=== PATIENT | female | born 1985 | race American Indian/Alaskan Native ===

== ENCOUNTER 2018-11-22 08:38 | Emergency (ER) | payer OTHER ==
[2018-11-22 08:45] VITALS: BP 124/83; PULSE 107; TEMP 98.2; BMI 36.5
--- NOTE | 2018-11-22 09:14 | PDOC ---
History of Present Illness - General Chief Complaint: Vaginal Bleeding Stated Complaint: CRAMPING/SPOTTING Time Seen by Provider: 11/22/18 09:12 History Source: Patient Exam Limitations: No Limitations - History of Present Illness Initial Comments: 11/22/18 09:13 CHIEF COMPLAINT: Vaginal bleeding HISTORY OF PRESENT ILLNESS: This is an otherwise healthy 33-year-old A1, 14 weeks , who presents for evaluation of one episode of vaginal spotting noted while wiping this morning, as well as vaginal "pressure" and dysuria. She also notes a rash to her left tricep since yesterday and pain in the left axilla. She denies back pain, abdominal pain, fevers/chills, or any other symptoms. Ob is Dr. Yost in [facility]. REVIEW OF SYSTEMS: GENERAL/CONSTITUTIONAL: No fever or chills. No weakness. No weight change. CARDIOVASCULAR: No chest pain or palpitations. RESPIRATORY: No cough, wheezing, or shortness of breath. GASTROINTESTINAL: No nausea, vomiting, diarrhea or constipation. GENITOURINARY: No dysuria, frequency, or change in urination. MUSCULOSKELETAL: Left axillary pain. SKIN: Rash to left bicep, not itchy or painful. NEUROLOGIC: No headache, vertigo, loss of consciousness, or loss of sensation. PSYCHIATRIC: No depression or anxiety. ENDOCRINE: No increased thirst. No abnormal weight change. HEMATOLOGIC/LYMPHATIC: No anemia, easy bleeding, or history of blood clots. ALLERGIC/IMMUNOLOGIC: No hives or skin allergy. No latex allergy. PHYSICAL EXAM: GENERAL: The patient is awake, alert, and fully oriented, in no acute distress. HEAD: Normal with no signs of trauma. ENT: Pupils equal, round and reactive to light, extraocular movements intact, sclera anicteric, conjunctiva clear. Neck supple. LUNGS: Clear to auscultation bilaterally. Normal excursion. No respiratory distress or use of accessory muscles. CV: RRR, S1/S2, no MRG. Cap refill < 2 sec. ABDOMEN: Soft, gravid uterus palpable below umbilicus, non-tender. EXTREMITIES: Normal range of motion, no edema. NEUROLOGICAL: Normal speech, normal gait. CN II-XII grossly intact. PSYCH: Normal mood, normal affect. SKIN: 6 x 4cm vesicular rash left tricep, no active drainage. No axillary rash. COAL CONVEYOR OPERATOR: Normal external exam. No discharge or bleeding. 11/22/18 10:02 Past History - Past Medical History Allergies/Adverse Reactions: Allergies Allergy/AdvReac Type Severity Reaction Status Date / Time No Known Allergies Allergy Verified 11/22/18 08:41 Asthma: Yes COPD: No - Immunization History Immunization Up to Date: Yes - Suicide/Smoking/Psychosocial Hx Smoking History: Never smoked Information on smoking cessation initiated: No Hx Alcohol Use: No Drug/Substance Use Hx: No *Physical Exam - Vital Signs Last Vital Signs Temp Pulse Resp BP Pulse Ox 98.2 F 107 H 17 124/83 99 11/22/18 08:41 11/22/18 08:41 11/22/18 08:41 11/22/18 08:41 11/22/18 08:41 ED Treatment Course - LABORATORY CBC & Chemistry Diagram: 11/22/18 10:31 11/22/18 09:32 - RADIOLOGY Radiology Studies Ordered: Category Date Time Status <14WKS US [US] Stat Ultrasound 11/22/18 09:13 Ordered Medical Decision Making - Medical Decision Making 11/22/18 10:05 A/P: 33-year-old female, 14 wks preg, with one episode of vaginal spotting and some dysuria, also with arm rash. 1. Labs including CBC, bhcg, T&S 2. UA/culture 3. Suspect shingles - will send VZV swab per pt request and treat with Valtrex Ultrasound reviewed: single live IUP with FHR 144bpm. UA neg. Wbc mildly elevated consistent with state. Rx Valtrex. Advised close OB followup. Return precautions reviewed. *DC/Admit/Observation/Transfer Diagnosis at time of Disposition: Vaginal bleeding before 22 weeks gestation - Discharge Dispostion Disposition: HOME Condition at time of disposition: Stable Decision to Admit order: No - Referrals - Patient Instructions Printed Discharge Instructions: DI for Shingles, DI for Vaginal Bleeding During Additional Instructions: -Pelvic rest: no sex or baths until you have seen your OB -Take Valtrex as prescribed for possible shingles -Follow up with Dr. Stuart as soon as possible -Return here for worsening pain or any other concerning symptoms - Post Discharge Activity
[2018-11-22 10:56] LABS: BASO % 0.3 % (0-2.0); EOS % 0.7 % (0-4.5); HEMOGLOBIN 11.6 GM/dL (10.7-15.3); LYMPH % 19.4 % (8-40); MCH 24.2 pg (25.7-33.7); MCHC 32.1 g/dl (32.0-36.0); MEAN CELL VOLUME 75.4 fl (80-96); MEAN PLT VOLUME 8.6 fl (7.5-11.1); MONO % 5.5 % (3.8-10.2); NEUT % 74.1 % (42.8-82.8); PLATELET COUNT 333 K/MM3 (134-434); RBC 4.78 M/mm3 (3.60-5.2); WHITE BLOOD COUNT 12.9 K/mm3 (4.0-10.0)
[2018-11-22 11:20] LABS: BLOOD UREA NITROGEN 5.4 mg/dL (7-18); CALCIUM 8.6 mg/dL (8.5-10.1); CREATININE 0.5 mg/dL (0.55-1.3)
[2018-11-22 11:27] LABS: PH,URINE 5.5 (5.0-8.0); URINE APPEARANCE CLEAR; URINE BILIRUBIN NEGATIVE (NEGATIVE); URINE COLOR YELLOW; URINE GLUCOSE (UA) NEGATIVE (NEGATIVE); URINE KETONE TRACE (NEGATIVE); URINE LEUK ESTERASE NEGATIVE (NEGATIVE); URINE NITRITE NEGATIVE (NEGATIVE); URINE PROTEIN NEGATIVE (NEGATIVE); URINE UROBILINOGEN 0.2 mg/dL (0.2-1.0)
== END 2018-11-22 12:08 | disposition home or self-care (01) ==
LOC: JER 08:38
DX: O26.852 Spotting complicating pregnancy, second trimester (principal); O20.8 Other hemorrhage in early pregnancy; Z3A.14 14 weeks gestation of pregnancy; R21 Rash and other nonspecific skin eruption; Z87.09 Personal history of other diseases of the respiratory system
CPT/HCPCS: 36415; 76801-TC; 80048; 81003; 84702; 85025; 86850; 86900; 86901; 87086; 87798; 99281-25

== ENCOUNTER 2018-12-16 03:56 | Emergency (ER) | payer OTHER ==
[2018-12-16 04:15] VITALS: BMI 36.1
--- NOTE | 2018-12-16 04:45 | PDOC ---
History of Present Illness - General Chief Complaint: Nausea/Vomiting Stated Complaint: FLU-LIKE SYMPTOMS 18 WEEKS Time Seen by Provider: 12/16/18 04:24 History Source: Patient Exam Limitations: No Limitations - History of Present Illness Initial Comments: 12/16/18 04:36 33 yo female 18 weeks , with 2 miscarriages pmh asthma presents to the ED for flu like symptoms for 2 days. Pt states she has had headaches, body aches, productive cough, chest tightness reminding her of past asthma exacerbations, fevers and NB/NB vomiting (4 episodes). Pt states a co worker had similar symptoms a few days before she did. Last Tylenol 11 pm, took 500mg. Denies abdominal pain, vaginal discharge, back pain, CP, changes in bowel or bladder habits Past History - Past Medical History Allergies/Adverse Reactions: Allergies Allergy/AdvReac Type Severity Reaction Status Date / Time No Known Allergies Allergy Verified 11/22/18 08:41 Home Medications: Ambulatory Orders Valacyclovir HCl [Valtrex] 1,000 mg PO Q8H 7 Days #21 tablet 11/22/18 Asthma: Yes COPD: No - Immunization History Immunization Up to Date: Yes - Psycho Social/Smoking Cessation Hx Smoking History: Never smoked Hx Alcohol Use: No Drug/Substance Use Hx: No Review of Systems - Review of Systems Constitutional: Yes: Fever. No: Chills Respiratory: Yes: Productive cough. No: Shortness of Breath Cardiac (ROS): No: Chest Pain, Edema ABD/GI: Yes: Nausea, Vomiting : No: Burning, Dysuria, Frequency, Flank Pain Integumentary: No: Change in Color Neurological: Yes: Headache. No: Numbness, Paresthesia, Unsteady Gait *Physical Exam - Vital Signs Last Vital Signs Temp Pulse Resp BP Pulse Ox 98.5 F 118 H 20 115/74 98 12/16/18 04:13 12/16/18 04:13 12/16/18 04:13 12/16/18 04:13 12/16/18 04:13 - Physical Exam General Appearance: Yes: Nourished, Appropriately Dressed. No: Apparent Distress HEENT: positive: EOMI Neck: positive: Supple. negative: Carotid bruit Respiratory/Chest: positive: Lungs Clear, Normal Breath Sounds. negative: Respiratory Distress, Accessory Muscle Use, Crackles, Rales, Rhonchi, Stridor, Wheezing Cardiovascular: positive: Regular Rhythm, S1, S2, Tachycardia. negative: Edema , JVD, Murmur Vascular Pulses: Dorsalis-Pedis (R): 4+, Doralis-Pedis (L): 4+ Gastrointestinal/Abdominal: positive: Flat, Soft. negative: Protuberent, Distended, Guarding, Rebound, Tenderness Musculoskeletal: negative: CVA Tenderness Extremity: positive: Normal Capillary Refill, Normal Inspection Integumentary: positive: Normal Color, Dry, Warm Neurologic: positive: Fully Oriented, Alert, Normal Mood/Affect Medical Decision Making - Medical Decision Making 12/16/18 05:52 33 yo female 18 weeks , with 2 miscarriages pmh asthma presents to the ED for flu like symptoms for 2 days. Pt states she has had headaches, body aches, productive cough, chest tightness reminding her of past asthma exacerbations, fevers and NB/NB vomiting (4 episodes). Pt states a co worker had similar symptoms a few days before she did. Last Tylenol 11 pm, took 500mg. Denies abdominal pain, vaginal discharge, back pain, CP, changes in bowel or bladder habits Vitals show elevated HR, will reassess bedside US shows live single IUP, FHR 158 likely URI with super imposed asthma exacerbation treating with Tylenol, fluids and 1 duoneb treatment 12/16/18 06:03 Pt reports sig improvement after breathing treatment Influenza and strep neg pending UA to r/o UTI in preg pt eating and drinking, no episodes of vomiting pt will be s/o for further care and likely be DC home for URI Discharge - Discharge Information Problems reviewed: Yes Clinical Impression/Diagnosis: URI (upper respiratory infection) Condition: Stable Disposition: HOME - Follow up/Referral Referrals: Zi Hills MD [Primary Care Provider] - - Patient Discharge Instructions Patient Printed Discharge Instructions: DI for Vomiting -- Adult, DI for Nausea -- Adult, DI for Viral Upper Respiratory Infection -- Adult Additional Instructions: Please see your primary doctor within the next 48 hours. See your SPRINKLER HELPER Doctor within the next 48 hours. Take Tylenol every 4-6 hours for fevers and pain. Return to the ER for new or concerning symptoms. Thank you - Post Discharge Activity
[2018-12-16] MEDS ORDERED: ACETAMINOPHEN 1000 MG/100 ML VIAL (NON FORMULARY) IVPB ONE (05:11)
[2018-12-16] MEDS ORDERED: SODIUM CHLORIDE 1,000 ML IV STA (05:11)
[2018-12-16] MEDS ORDERED: ALBUTEROL SO4 2.5/IPRATROPIUM 0.5 INH SOL 3 ML VIAL.NEB. NEB ONE ×2 (05:16→05:25)
[2018-12-16] MEDS ORDERED: ACETAMINOPHEN INJECTION 100 ML IVPB ONE (05:41)
--- NOTE | 2018-12-16 06:01 | PDOC ---
Attending Attestation - Resident Resident Name: Jarrod Ivy - ED Attending Attestation I have performed the following: I have examined & evaluated the patient, The case was reviewed & discussed with the resident, I agree w/resident's findings & plan, Exceptions are as noted - HPI HPI: 12/16/18 06:01 33 F @ 18 weeks, with h/o asthma, presenting to ED with bodyaches, cough, and malaise. Pt states that she had a sick contact at work with similar symptoms. Pt denies fevers. She states that she felt some chest tightness and wheezing as well, but this resolved after using an albuterol neb. Pt denies CP/ SOB currently. Denies abdominal pain. Denies vaginal discharge/bleeding. Denies dysuria. Denies flank pain. - Physicial Exam PE: 12/16/18 06:05 "GENERAL: Awake, alert, and fully oriented, in no acute distress. HEAD: No signs of trauma EYES: PERRLA, EOMI, sclera anicteric, conjunctiva clear ENT: Auricles normal inspection, hearing grossly normal, nares patent, oropharynx clear without exudates. Moist mucosa NECK: Nontender, no stepoffs, Normal ROM, supple, no lymphadenopathy, JVD, or masses LUNGS: Breath sounds equal, clear to auscultation bilaterally. No wheezes, and no crackles HEART: Regular rate and rhythm, normal S1 and S2, no murmurs, rubs or gallops ABDOMEN: + Gravid, nontender, normoactive bowel sounds. No guarding, no rebound. No masses EXTREMITIES: Normal range of motion, no edema. No clubbing or cyanosis. No cords, erythema, or tenderness NEUROLOGICAL: Cranial nerves II through XII intact. 5/5 strength and sensation in all extremities, Normal speech, normal gait, normal cerebellar function SKIN: Warm, Dry, normal turgor, no rashes or lesions noted. - Medical Decision Making 12/16/18 06:05 33 F @ 18 weeks, presenting with flu like symptoms. - Flu swab, rapid strep - UA, UCx - IVF, tylenol
--- NOTE | 2018-12-16 07:15 | PDOC ---
*Physical Exam - Vital Signs Last Vital Signs Temp Pulse Resp BP Pulse Ox 98.5 F 118 H 20 115/74 98 12/16/18 04:13 12/16/18 04:13 12/16/18 04:13 12/16/18 04:13 12/16/18 04:13 ED Treatment Course - RADIOLOGY Radiograph Interpretation: Pelvis/obstetrical ultrasound, transabdominal LMP 08/15/2018 The uterus is gravid with a single intrauterine fetus seen in transverse lie position. Average sonographic gestational age is 14 weeks 2 days. heart rate is 141 bpm. There is no gross evidence of hydrocephalus. Site of umbilical cord insertion appears unremarkable. Minimal fluid is present in the stomach and urinary bladder. The amount of amniotic fluid appears unremarkable. Anterior placenta with a homogeneous echotexture. Uterine cervix was poorly visualized and not completely evaluated on this exam. IMPRESSION: Single live intrauterine in transverse position with average sonographic gestational age of 14 weeks 2 days. heart rate was documented. An obstetrical ultrasound to check anatomy is needed 12/16/18 07:14 - Medications Given in the ED: ED Medications Discontinued Medications Generic Name Dose Route Start Last Admin Trade Name Jackq PRN Reason Stop Dose Admin Acetaminophen 1,000 mg 12/16/18 05:11 12/16/18 05:54 Ofirmev Injection - IVPB 12/16/18 05:12 1,000 mg ONCE ONE Administration Albuterol/Ipratropium 1 amp 12/16/18 05:16 12/16/18 05:31 Duoneb - NEB 12/16/18 05:17 1 amp ONCE ONE Administration Sodium Chloride 1,000 mls @ 1,000 mls/hr 12/16/18 05:11 12/16/18 05:53 Normal Saline - IV 12/16/18 06:10 1,000 mls/hr ASDIR STA Administration Medical Decision Making - Medical Decision Making Pt received as sign out Influenza swab neg TVUS w/ single IUP Pt pending UA and repeat vitals 12/16/18 07:13 Repeat BP 93/58 -Will give additional 1L NS -Pt asymptomatic at this time UA still pending 12/16/18 07:57 UA w/o evidence of UTI Plan for D/C w/ OBGYN f/u Discharge instructions and return precautions given Pt in agreement and verbalized understanding Dispo: home 12/16/18 08:21 Discharge - Discharge Information Problems reviewed: Yes Clinical Impression/Diagnosis: URI (upper respiratory infection) Qualifiers: URI type: unspecified URI Qualified Code(s): J06.9 - Acute upper respiratory infection, unspecified Condition: Stable Disposition: HOME - Admission No - Follow up/Referral Referrals: Zi Hills MD [Primary Care Provider] - - Patient Discharge Instructions Patient Printed Discharge Instructions: DI for Viral Upper Respiratory Infection -- Adult, DI for Nausea -- Adult, DI for Vomiting -- Adult Additional Instructions: Please see your primary doctor within the next 48 hours. See your CARBON PRINTER Doctor within the next 48 hours. Take Tylenol every 4-6 hours for fevers and pain. Return to the ER for new or concerning symptoms. Thank you - Post Discharge Activity
[2018-12-16 07:19] VITALS: PULSE 100; TEMP 98
[2018-12-16] MEDS ORDERED: SODIUM CHLORIDE 0.9% 500 ML INFUS.BAG IV ONE (07:41)
[2018-12-16 08:18] LABS: URINE APPEARANCE CLEAR; URINE BILIRUBIN NEGATIVE (NEGATIVE); URINE COLOR YELLOW; URINE GLUCOSE (UA) NEGATIVE (NEGATIVE); URINE KETONE NEGATIVE (NEGATIVE); URINE LEUK ESTERASE NEGATIVE (NEGATIVE); URINE NITRITE NEGATIVE (NEGATIVE); URINE PROTEIN TRACE (NEGATIVE); URINE UROBILINOGEN 0.2 mg/dL (0.2-1.0)
[2018-12-16 08:27] VITALS: BP 104/69
--- NOTE | 2018-12-16 08:31 | PDOC ---
*Physical Exam - Vital Signs Last Vital Signs Temp Pulse Resp BP Pulse Ox 98.0 F 100 H 20 104/69 100 12/16/18 07:18 12/16/18 08:27 12/16/18 08:27 12/16/18 08:27 12/16/18 08:27 - Physical Exam Comments: 12/16/18 08:30 His pelvic exam by 430 awake alert no acute distress lungs are clear bilaterally patient is well-appearing no acute distress ED Treatment Course - ADDITIONAL ORDERS Additional order review: Laboratory Results 12/16/18 07:00 Urine Color Yellow Urine Appearance Clear Urine pH 6.0 Ur Specific [place] 1.032 Urine Protein Trace Urine Glucose (UA) Negative Urine Ketones Negative Urine Blood Negative Urine Nitrite Negative Urine Bilirubin Negative Urine Urobilinogen 0.2 Ur Leukocyte Esterase Negative - Medications Given in the ED: ED Medications Discontinued Medications Generic Name Dose Route Start Last Admin Trade Name Jackq PRN Reason Stop Dose Admin Acetaminophen 1,000 mg 12/16/18 05:11 12/16/18 05:54 Ofirmev Injection - IVPB 12/16/18 05:12 1,000 mg ONCE ONE Administration Albuterol/Ipratropium 1 amp 12/16/18 05:16 12/16/18 05:31 Duoneb - NEB 12/16/18 05:17 1 amp ONCE ONE Administration Sodium Chloride 1,000 mls @ 1,000 mls/hr 12/16/18 05:11 12/16/18 05:53 Normal Saline - IV 12/16/18 06:10 1,000 mls/hr ASDIR STA Administration Sodium Chloride 1,000 ml 12/16/18 07:41 12/16/18 07:45 Normal Saline - IV 12/16/18 07:42 1,000 ml ONCE ONE Administration Medical Decision Making - Medical Decision Making 12/16/18 08:30 33-year-old female currently here today with cough nasal congestion nausea vomiting. Patient was seen by the overnight team signed out to me at 7 AM awaiting UA results on my reassessment patient is well-appearing states she feels better was able to tolerate a banana here in the ED had received 1 L of normal saline she will be ordered for 1 more liter as blood pressure was borderline low in the 90s sure over 100 systolic heart rate is 100 UA is negative discharged home patient will follow up with obstetrics Dr. Jansen Discharge - Discharge Information Problems reviewed: Yes Clinical Impression/Diagnosis: URI (upper respiratory infection) Qualifiers: URI type: unspecified URI Qualified Code(s): J06.9 - Acute upper respiratory infection, unspecified Condition: Stable Disposition: HOME - Follow up/Referral Referrals: Zi Hills MD [Primary Care Provider] - - Patient Discharge Instructions Patient Printed Discharge Instructions: DI for Viral Upper Respiratory Infection -- Adult, DI for Nausea -- Adult, DI for Vomiting -- Adult Additional Instructions: Please see your primary doctor within the next 48 hours. See your TRANSMISSION BUILDER Doctor within the next 48 hours. Take Tylenol every 4-6 hours for fevers and pain. Return to the ER for new or concerning symptoms. Thank you - Post Discharge Activity
== END 2018-12-16 08:52 | disposition home or self-care (01) ==
LOC: JER 03:56
PROC: 3E0337Z Introduction of Electrolytic and Water Balance Substance into Peripheral Vein, Percutaneous Approach (ICD-10-PCS; principal; 2018-12-16)
PROC: 3E033NZ Introduction of Analgesics, Hypnotics, Sedatives into Peripheral Vein, Percutaneous Approach (ICD-10-PCS; 2018-12-16)
PROC: 3E0F7GC Introduction of Other Therapeutic Substance into Respiratory Tract, Via Natural or Artificial Opening (ICD-10-PCS; 2018-12-16)
PROC: BY4CZZZ Ultrasonography of Second Trimester, Single Fetus (ICD-10-PCS; 2018-12-16)
DX: O26.892 Other specified pregnancy related conditions, second trimester (principal); J06.9 Acute upper respiratory infection, unspecified; Z3A.18 18 weeks gestation of pregnancy
CPT/HCPCS: 81003; 87070; 87086; 87804; 87880; 99284-25; J0131; J7030

== ENCOUNTER 2019-01-08 16:21 | Emergency (ER) | payer OTHER ==
--- NOTE | 2019-01-08 16:27 | PDOC ---
Rapid Medical Evaluation Time Seen by Provider: 01/08/19 16:24 Medical Evaluation: Allergies Allergy/AdvReac Type Severity Reaction Status Date / Time No Known Allergies Allergy Verified 11/22/18 08:41 01/08/19 16:24 CC: sent by PMD to r/o DVT. 21wks . No traffic analyst complaints. PE: RLE swelling and calf tenderness. No cords Orders: doppler Patient will proceed to ER for continued evaluation. Discharge Disposition - Diagnosis Swelling of calf - Referrals - Patient Instructions - Post Discharge Activity
[2019-01-08 16:28] VITALS: BMI 33.9
--- NOTE | 2019-01-08 17:42 | PDOC ---
History of Present Illness - General Chief Complaint: Pain Stated Complaint: SENT BY DOCTOR 21WK PREG R/O DVT Time Seen by Provider: 01/08/19 16:24 History Source: Patient Exam Limitations: No Limitations Past History - Past Medical History Allergies/Adverse Reactions: Allergies Allergy/AdvReac Type Severity Reaction Status Date / Time No Known Allergies Allergy Verified 01/08/19 16:27 Home Medications: Ambulatory Orders NK [No Known Home Medication] 12/16/18 Asthma: Yes COPD: No - Immunization History Immunization Up to Date: Yes - Psycho Social/Smoking Cessation Hx Smoking History: Never smoked Information on smoking cessation initiated: No Hx Alcohol Use: No Drug/Substance Use Hx: No *Physical Exam - Vital Signs Last Vital Signs Temp Pulse Resp BP Pulse Ox 98.1 F 108 H 19 123/80 98 01/08/19 16:25 01/08/19 16:25 01/08/19 16:25 01/08/19 16:25 01/08/19 16:25 - Physical Exam General Appearance: No: Apparent Distress Respiratory/Chest: negative: Respiratory Distress Gastrointestinal/Abdominal: positive: Other (gravid uterus) Extremity: positive: Normal Capillary Refill, Other (no significant leg swelling ; mild swelling along R swelling, mild R calf tenderness, no change in skin color of RLE) Integumentary: positive: Normal Color. negative: Ecchymosis, Bruising Neurologic: positive: Alert, Normal Mood/Affect Medical Decision Making - Medical Decision Making 33 y/o F , hx of 2 miscarriages, hx of asthma, currently 20 weeks 6 days presents with RLE swelling from today. Patient follows with Dr. Howell, yesterday, for OB follow-up and everything was well. Spoke to him today re: the RLE swelling and was advised to come to ED. Denies fever, sob, cp , abd pain, vaginal bleeding. RLE US negative for DVT Dr. Howell made aware of results Patient to go to L&D for FHR Stable for dc 01/08/19 17:47 Discharge - Discharge Information Problems reviewed: Yes Clinical Impression/Diagnosis: Swelling of calf Condition: Stable Disposition: HOME - Admission No - Additional Discharge Information Prescription Drug Monitoring Program (I-STOP) results: I-STOP not reviewed - Follow up/Referral Referrals: Guy Howell MD [Primary Care Provider] - 2 Days - Patient Discharge Instructions - Post Discharge Activity
--- NOTE | 2019-01-08 18:16 | CONSULT ---
Past Medical History, Laborist - Admission Chief Complaint: This patient was seen in ED. C/o suddenly swollen right ankle. Doppler of rt lower extremity was neg. for thrombi. For evaluation of . History Source: Patient Limitations to Obtaining History: No Limitations - Past Medical History EVALUATION ANALYST: Denies/None Cardio/Vascular: Denies/None Pulmonary: Denies/None Gastrointestinal: Denies/None Hepatobiliary: Denies/None Renal/: Denies/None ...: 2 ...Para: 1 ...EDC by Dates: 05/17/19 Heme/Onc: Denies/None Infectious Disease: Denies/None Psych: Denies/None Musculoskeletal: Denies/None Rheumatology: Denies/None ENT: Denies/None Endocrine: Denies/None Dermatology: Denies/None - Smoking History Smoking history: Never smoked - Alcohol/Substance Use Hx Alcohol Use: No Review of Systems - Review of Systems Constitutional: reports: No Symptoms Eyes: reports: No Symptoms HENT: reports: No Symptoms Neck: reports: No Symptoms Cardiovascular: reports: No Symptoms Respiratory: reports: No Symptoms Gastrointestinal: reports: No Symptoms Genitourinary: reports: No Symptoms Breasts: reports: No Symptoms Reported Musculoskeletal: reports: No Symptoms Integumentary: reports: No Symptoms Neurological: reports: No Symptoms Endocrine: reports: No Symptoms Hematology/Lymphatic: reports: No Symptoms Psychiatric: reports: No Symptoms Physical Exam - Maternity Vital Signs: Vital Signs Temperature 98.1 F 01/08/19 16:25 Pulse Rate 108 H 01/08/19 16:25 Respiratory Rate 19 01/08/19 16:25 Blood Pressure 123/80 01/08/19 16:25 O2 Sat by Pulse Oximetry (%) 98 01/08/19 16:25 Problem List - Problems (1) Swelling of calf Code(s): M79.89 - OTHER SPECIFIED SOFT TISSUE DISORDERS (2) Code(s): Z34.90 - ENCNTR FOR SUPRVSN OF NORMAL , UNSP, UNSP TRIMESTER Assessment/Plan After DVT was ruled out pt, was brought to L&D for eval of . Uterus soft, nontender, about 20 -22 wks. FH confirmed, 140 bpm. Pelvic exam deferred. All explained. Pt. reassured. Discharge.
[2019-01-08 18:36] VITALS: BP 120/64; PULSE 105; TEMP 98
== END 2019-01-08 18:20 | disposition home or self-care (01) ==
LOC: JER 16:21
DX: O26.892 Other specified pregnancy related conditions, second trimester (principal); M79.89 Other specified soft tissue disorders; Z3A.21 21 weeks gestation of pregnancy
CPT/HCPCS: 93971-TC; 99282-25

== ENCOUNTER 2019-05-09 10:48 | Inpatient (IN) | payer OTHER ==
[2019-05-09 12:06] VITALS: BMI 36.4
[2019-05-09] MEDS ORDERED: morphine SULFATE/PF 0.5 MG/ML (2cc Syringe - QUVA) ONE (13:12)
[2019-05-09] MEDS ORDERED: SUCCINYLCHOLINE CHLORIDE 200 MG/10 ML SYRINGE ONE (13:12)
[2019-05-09] MEDS ORDERED: ELECTROLYTE-148 SOLN 500 ML IV ONE (13:18)
[2019-05-09] MEDS ORDERED: CITRIC ACID/SODIUM CITRATE 30 ML UNIT-DOSE CUP PO ONE ×2 (13:18→13:20)
--- NOTE | 2019-05-09 13:21 | HP ---
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: Alzheimer's, CVA, Dementia, Migraine, Multiple Sclerosis, Peripheral Neuropathy, Parkinson's, Seizure, Syncope, TIA, Vertigo, Other Cardiovascular: No: AFIB, Aneurysm, Aortic Insufficiency, Aortic Stenosis, CAD, CHF, Deep Vein Thrombosis, HTN, Hyperlipdemia, DC, Mitral Insufficiency, Mitral Stenosis, Murmur, Pulmonary Hypertension, Other Pulmonary: No: Asthma, Bronchitis, Cancer, COPD, O2 Dependent, Pneumonia, Previously Intubated, Pulmonary Embolus, Pulmonary Fibrosis, Sleep Apnea, Other Gastrointestinal: No: Ascites, Cancer, Constipation, Crohn's Disease, Diverticulitis, Diverticulosis, Esophageal Varices, Gastritis, GERD, GI Bleed, Hemorrhoids, Hiatal Hernia, Inflamatory Bowel Disease, Irritable Bowel Disease, Pancreatitis, Peptic Ulcer Disease, Ulcerative Colitis, Other Hepatobiliary: No: Cirrhosis, Cholelithiasis, Cholecystitis, Choledocholithiasis, Hepatitis A, Hepatitis B, Hepatitis C, Other Renal/: No: Renal Failure, Renal Inusuff, BPH, Cancer, Hematuria, Hemodial ysis, Neurogenic Bladder, Renal Calculi, UTI, Other Reproductive: No: Ectopic , Endometriosis, Fibroids, PID, Polycystic Ovary Syndrome, Postmenopausal, Other ...: 4 ...Para: 1 ...Term: 1 ...: 0 ...Spon : 2 ...Induced : 0 ...Multiple Gestation: 0 ...LMP: 08/08/18 ... Weeks Gestation by Dates: 39.0 ...EDC by Dates: 05/16/19 ...EDC by Sono: 05/17/19 Heme/Onc: No: Anemia, B12 Deficiency, Bleeding Disorder, Cancer, Current Chemotherapy, Current Radiation Therapy, Hemochromatosis, Hypercoaguable State, Myeloproliferative Synd, Sickle Cell Disease, Sickle Cell Trait, Thrombocytopenia, Other Infectious Disease: No: AIDS, C-Diff, Herpes Zoster, HIV, MRSA, STD's, Tuberculosis, VREF, Other Psych: No: Addictions, Anxiety, Bipolar, Depression, Panic, Psychosis, Schizophrenia, Other Musculoskeletal: No: Bursitis, Chronic low back pain, Hemiparesis, Hemiplegia, Osteoarthritis, Paraplegia, Other Rheumatology: No: Fibromyalgia, Gout, Lupus, Rheumatoid Arthritis, Sarcoidosis, Vasculitis, Other ENT: No: Allergic Rhinitis, Sinusitis, Other Endocrine: No: [place]'s Disease, [place]'s Disease, Diabetes Insipidus, Diabetes Mellitus, Hyperparathyroidism, Hyperthyroidism, Hypothyroidism, Osteopenia, SIADH, Other Dermatology: No: Basal Cell, Cellulitis, Eczema, Melanoma, Psoriasis, Squamous Cell, Other - Past Surgical History Past Surgical History: Yes: Hx Myomectomy: No Hx Transabdominal Cerclage: No - Advance Directives Advance Directives: Yes: Living Will - Smoking History Smoking history: Never smoked Have you smoked in the past 12 months: No - Alcohol/Substance Use Hx Alcohol Use: No History of Substance Use: reports: None - Social History Usual Living Arrangement: Yes: With Spouse Do you think of yourself as: Straight/Heterosexual ADL: Independent History of Recent Travel: No Home Medications - Allergies Allergies/Adverse Reactions: Allergies Allergy/AdvReac Type Severity Reaction Status Date / Time No Known Allergies Allergy Verified 05/09/19 11:34 - Home Medications Home Medications: Ambulatory Orders Pnv No.95/Ferrous Fum/Folic AC [ Formula] 1 each PO DAILY 05/09/19 Family Medical History Family History: Denies Review of Systems - Review of Systems Constitutional: reports: No Symptoms Eyes: reports: No Symptoms HENT: reports: No Symptoms Neck: reports: No Symptoms Cardiovascular: reports: No Symptoms Respiratory: reports: No Symptoms Gastrointestinal: reports: No Symptoms Genitourinary: reports: No Symptoms Breasts: reports: No Symptoms Reported Musculoskeletal: reports: No Symptoms Integumentary: reports: No Symptoms Neurological: reports: No Symptoms Endocrine: reports: No Symptoms Hematology/Lymphatic: reports: No Symptoms Psychiatric: reports: No Symptoms Physical Exam - Maternity Vital Signs: Vital Signs Temperature 97.9 F 05/09/19 11:24 Pulse Rate 110 H 05/09/19 11:24 Respiratory Rate 18 05/09/19 11:24 Blood Pressure 117/83 05/09/19 11:24 O2 Sat by Pulse Oximetry (%) Constitutional: Yes: Well Nourished, No Distress, Calm Eyes: Yes: WNL, Conjunctiva Clear, EOM Intact HENT: Yes: WNL, Atraumatic, Normocephalic Neck: Yes: WNL, Supple, Trachea Midline Cardiovascular: Yes: WNL, Regular Rate and Rhythm Lungs: Clear to auscultation Breast(s): Yes: WNL - Abdominal Exam/OB Fundal Height: 38 Number of Fetuses: Single Presentation: Vertex Contractions: Yes Regularity: Irregular Intensity: Mild Monitor Mode: External Heart Rate (range): 150 Heart Rate Location: [facility] Category: I Accelerations: Uniform Decelerations: None - Vaginal Exam/OB Vaginal Bleediing: No Speculum Exam: No Dilatation (cm): 1 Effacement (%): 20 Amniotic Membrane Status: Intact Presentation: Vertex/Position Station: -2 - Physical Exam Musculoskeletal: Yes: WNL Extremities: Yes: WNL Edema: Yes Edema: LUE: 1+, RUE: 1+, LLE: 1+, RLE: 1+ Integumentary: Yes: WNL Deep Tendon Reflex Grade: Normal +2 ...Motor Strength: WNL Psychiatric: Yes: WNL, Alert, Oriented Hemorrhage Risk Assessment - Risk Factors Medium Risk Factors: Yes: Prior , uterine surgery,or multiple laparotomies Risk Score: 1 Risk Level: Medium Risk Assessment/Plan for repeat lt c s
[2019-05-09] MEDS ORDERED: morphine SULFATE/PF 0.5 MG/ML (2cc Syringe - QUVA) EP ONE (13:25)
[2019-05-09] MEDS ORDERED: ELECTROLYTE-148 SOLN 1,000 ML IV SCH (13:30)
[2019-05-09] MEDS ORDERED: ceFAZolin SODIUM 1 GM VIAL ONE (13:30)
[2019-05-09] MEDS ORDERED: OXYTOCIN 20 UNITS in 0.9% NS 20 UNIT/1,000 ML INFUS.BAG IV ONE ×2 (13:47→14:41)
[2019-05-09] MEDS ORDERED: ONDANSETRON 4 MG/2 ML VIAL IVPUSH PRN ×2 (14:08)
[2019-05-09] MEDS ORDERED: LACTATED RINGERS SOLUTION 1,000 ML IV SCH (14:15)
[2019-05-09] MEDS ORDERED: oxyCODONE HCL 5 MG TABLET PO PRN (15:27)
[2019-05-09] MEDS ORDERED: SENNOSIDES/DOCUSATE COMBO (SENNA PLUS) TABLET (UD) PO PRN (15:27)
[2019-05-09] MEDS ORDERED: METHYLERGONOVINE MALEATE 0.2 MG/1 ML AMP IM PRN (15:27)
--- NOTE | 2019-05-09 15:27 | OP ---
Operative Note - Note: Operative Date: 05/09/19 Pre-Operative Diagnosis: repeat lt c s Operation: repeat lt c s Implants: na/ a Post-Operative Diagnosis: Same as Pre-op Surgeon: Zi Hills Credit Risk Management Director: Jace Michaels Anesthesiologist/PROGRAM EVALUATOR: Julien Whittaker Anesthesia: Spinal Estimated Blood Loss (mls): 600 (no complications ) Operative Report Dictated: Yes
[2019-05-09] MEDS ORDERED: OXYTOCIN 20 UNITS in 0.9% NS 20 UNIT/1,000 ML INFUS.BAG IV SCH (15:30)
[2019-05-09] MEDS: IBUPROFEN 800 MG/8 ML IJ IVPB PRN ×2 (15:55→23:47)
[2019-05-09] MEDS ORDERED: KETOROLAC TROMETHAMINE 30 MG/1 ML VIAL IVPUSH PRN (18:24)
[2019-05-10 06:35] LABS: BASO % 0.4 % (0-2.0); LYMPH % 21.4 % (8-40); MCH 23.6 pg (25.7-33.7); MCHC 32.2 g/dl (32.0-36.0); MEAN CELL VOLUME 73.3 fl (80-96); MEAN PLT VOLUME 8.3 fl (7.5-11.1); MONO % 5.9 % (3.8-10.2); NEUT % 70.3 % (42.8-82.8); PLATELET COUNT 236 K/MM3 (134-434); RBC 3.82 M/mm3 (3.60-5.2); RDW 18.6 % (11.6-15.6); WHITE BLOOD COUNT 11.7 K/mm3 (4.0-10.0)
--- NOTE | 2019-05-10 07:27 | OP ---
DATE OF OPERATION: 05/09/2019 PREOPERATIVE DIAGNOSIS: Repeat low transverse section. POSTOPERATIVE DIAGNOSIS: Repeat low transverse section. PROCEDURE: Repeat low transverse section. SURGEON: Zi Hills MD HAM PUMPER: ROB Quinones ANESTHESIA: Roel Whittaker MD, spinal anesthesia. INDICATIONS: A 34-year-old female patient 39 weeks, previous history of low transverse section. All the risks and benefits, alternatives explained to the patient. Was taken to the OR for repeat low transverse section. DESCRIPTION OF PROCEDURE: Patient was taken to the OR. Placed on the operating room table in supine position. After the spinal anesthesia was obtained, the patient's abdomen and pelvis were prepped and draped in the usual sterile manner. Pfannenstiel incision was made. Incision was made through the skin and subcutaneous tissue until the fascia was nicked in the midline. The fascia was extended bilaterally. Intraperitoneal cavity was entered. Bladder flap was not created. Low transverse segment was entered. Baby was delivered from LOT position. Baby was hand delivered to sewer builder after umbilical cord was doubly clamped and cut. Placenta was removed. Uterus was closed in single layer. First layer interlocking Vicryl sutures. Good hemostasis. Both gutters were cleaned. Both ovaries, fallopian tubes, uterus were within normal limits. No complications. Patient tolerated procedure well. Draining clear urine. Blood loss about 600 mL. Peritoneum was closed. Fascia was closed. Skin was closed. Transferred to recovery room in stable condition. MD OBDULIA FRAZIER/[id number]
[2019-05-10] MEDS: IBUPROFEN 600 MG TABLET (FP) PO PRN ×2 (07:57→14:39)
[2019-05-10] MEDS: ACETAMINOPHEN 325 MG TABLET (FP) PO PRN ×4 (07:58→23:53)
[2019-05-10] MEDS: SIMETHICONE 80 MG TAB.CHEW (FP) PO PRN ×4 (07:59→23:54)
[2019-05-10] MEDS: oxyCODONE HCL 5 MG TABLET PO PRN ×4 (09:28→23:53)
[2019-05-10] MEDS: ENOXAPARIN NA (PORCINE) 40 MG/0.4 ML DISP.SYRIN SQ SCH (10:18)
--- NOTE | 2019-05-10 10:32 | PN ---
Progress Note (short form) - Note Progress Note: Anesthesia postop note POD#1 S/P under spinal with Duramorph. VSS. ambulating. Pain well controlled. No apparent post anesthesia complications.
--- NOTE | 2019-05-10 19:25 | PN ---
Post Progress Note Post Day: 1 Type of Delivery: Repeat C/S Vital Signs: Vital Signs Temperature 97.9 F 05/10/19 14:00 Pulse Rate 85 05/10/19 14:00 Respiratory Rate 20 05/10/19 14:00 Blood Pressure 104/65 05/10/19 14:00 O2 Sat by Pulse Oximetry (%) 100 05/09/19 16:00 Breast Exam: Yes: Soft Uterus: Yes: Fundus Firm, Fundus below umbilicus, Non-tender Incision: Yes: Dressing dry and intact, Sutures intact Abdomen/GI: Yes: Abdomen soft, Passing flatus, Tolerating PO Lochia: Yes: Serosa Lochia, amount: Small Extremities: Yes: Calves non-tender Perineum: Yes: Intact Activity: Ambulating (doing well ) - Labs Labs: CBC WBC 11.7 K/mm3 (4.0-10.0) H 05/10/19 06:15 RBC 3.82 M/mm3 (3.60-5.2) 05/10/19 06:15 Hgb 9.0 GM/dL (10.7-15.3) L 05/10/19 06:15 Hct 28.0 % (32.4-45.2) L D 05/10/19 06:15 MCV 73.3 fl (80-96) L 05/10/19 06:15 MCH 23.6 pg (25.7-33.7) L 05/10/19 06:15 MCHC 32.2 g/dl (32.0-36.0) 05/10/19 06:15 RDW 18.6 % (11.6-15.6) H 05/10/19 06:15 Plt Count 236 K/MM3 (134-434) D 05/10/19 06:15 MPV 8.3 fl (7.5-11.1) 05/10/19 06:15 Absolute Neuts (auto) 8.2 K/mm3 (1.5-8.0) H 05/10/19 06:15 Neutrophils % 70.3 % (42.8-82.8) 05/10/19 06:15 Lymphocytes % 21.4 % (8-40) 05/10/19 06:15 Monocytes % 5.9 % (3.8-10.2) 05/10/19 06:15 Eosinophils % 2.0 % (0-4.5) D 05/10/19 06:15 Basophils % 0.4 % (0-2.0) 05/10/19 06:15 Nucleated RBC % 0 % (0-0) 05/10/19 06:15
[2019-05-10] MEDS: BISACODYL 10 MG SUPP.RECT RC PRN (21:33)
[2019-05-11] MEDS: IBUPROFEN 600 MG TABLET (FP) PO PRN ×5 (00:31→22:26)
[2019-05-11] MEDS: SIMETHICONE 80 MG TAB.CHEW (FP) PO PRN ×4 (04:25→22:26)
[2019-05-11] MEDS: ACETAMINOPHEN 325 MG TABLET (FP) PO PRN ×4 (04:25→22:26)
--- NOTE | 2019-05-11 07:29 | PN ---
Post Progress Note Post Day: 2 Type of Delivery: Repeat C/S Vital Signs: Vital Signs Temperature 97.6 F 05/10/19 20:25 Pulse Rate 92 H 05/10/19 20:25 Respiratory Rate 20 05/10/19 20:25 Blood Pressure 117/62 05/10/19 20:25 O2 Sat by Pulse Oximetry (%) 100 05/09/19 16:00 Breast Exam: Yes: Soft Uterus: Yes: Fundus Firm Incision: Yes: Dressing dry and intact, Sutures intact Abdomen/GI: Yes: Abdomen soft, Tolerating PO Lochia: Yes: Serosa Lochia, amount: Small Extremities: Yes: Calves non-tender Perineum: Yes: Intact Activity: Ambulating (doing well ) - Labs Labs: CBC WBC 11.7 K/mm3 (4.0-10.0) H 05/10/19 06:15 RBC 3.82 M/mm3 (3.60-5.2) 05/10/19 06:15 Hgb 9.0 GM/dL (10.7-15.3) L 05/10/19 06:15 Hct 28.0 % (32.4-45.2) L D 05/10/19 06:15 MCV 73.3 fl (80-96) L 05/10/19 06:15 MCH 23.6 pg (25.7-33.7) L 05/10/19 06:15 MCHC 32.2 g/dl (32.0-36.0) 05/10/19 06:15 RDW 18.6 % (11.6-15.6) H 05/10/19 06:15 Plt Count 236 K/MM3 (134-434) D 05/10/19 06:15 MPV 8.3 fl (7.5-11.1) 05/10/19 06:15 Absolute Neuts (auto) 8.2 K/mm3 (1.5-8.0) H 05/10/19 06:15 Neutrophils % 70.3 % (42.8-82.8) 05/10/19 06:15 Lymphocytes % 21.4 % (8-40) 05/10/19 06:15 Monocytes % 5.9 % (3.8-10.2) 05/10/19 06:15 Eosinophils % 2.0 % (0-4.5) D 05/10/19 06:15 Basophils % 0.4 % (0-2.0) 05/10/19 06:15 Nucleated RBC % 0 % (0-0) 05/10/19 06:15
[2019-05-11] MEDS: ENOXAPARIN NA (PORCINE) 40 MG/0.4 ML DISP.SYRIN SQ SCH (09:44)
[2019-05-11] MEDS: BISACODYL 10 MG SUPP.RECT RC PRN (12:21)
[2019-05-12] MEDS: IBUPROFEN 600 MG TABLET (FP) PO PRN (06:39)
[2019-05-12] MEDS: ACETAMINOPHEN 325 MG TABLET (FP) PO PRN (06:40)
[2019-05-12] MEDS: oxyCODONE HCL 5 MG TABLET PO PRN (08:07)
[2019-05-12] MEDS: SIMETHICONE 80 MG TAB.CHEW (FP) PO PRN (08:08)
--- NOTE | 2019-05-12 08:58 | PN ---
Post Progress Note Post Day: 3 Type of Delivery: Repeat C/S Vital Signs: Vital Signs Temperature 98.3 F 05/11/19 22:00 Pulse Rate 80 05/11/19 22:00 Respiratory Rate 20 05/11/19 22:00 Blood Pressure 118/69 05/11/19 22:00 O2 Sat by Pulse Oximetry (%) 100 05/09/19 16:00 Breast Exam: Yes: Soft Uterus: Yes: Fundus Firm, Fundus below umbilicus, Non-tender Incision: Yes: Dressing dry and intact, Sutures intact Abdomen/GI: Yes: Abdomen soft, Passing flatus, Tolerating PO Lochia: Yes: Serosa Lochia, amount: Small Extremities: Yes: Calves non-tender Perineum: Yes: Intact Activity: Ambulating - Labs Labs: CBC WBC 11.7 K/mm3 (4.0-10.0) H 05/10/19 06:15 RBC 3.82 M/mm3 (3.60-5.2) 05/10/19 06:15 Hgb 9.0 GM/dL (10.7-15.3) L 05/10/19 06:15 Hct 28.0 % (32.4-45.2) L D 05/10/19 06:15 MCV 73.3 fl (80-96) L 05/10/19 06:15 MCH 23.6 pg (25.7-33.7) L 05/10/19 06:15 MCHC 32.2 g/dl (32.0-36.0) 05/10/19 06:15 RDW 18.6 % (11.6-15.6) H 05/10/19 06:15 Plt Count 236 K/MM3 (134-434) D 05/10/19 06:15 MPV 8.3 fl (7.5-11.1) 05/10/19 06:15 Absolute Neuts (auto) 8.2 K/mm3 (1.5-8.0) H 05/10/19 06:15 Neutrophils % 70.3 % (42.8-82.8) 05/10/19 06:15 Lymphocytes % 21.4 % (8-40) 05/10/19 06:15 Monocytes % 5.9 % (3.8-10.2) 05/10/19 06:15 Eosinophils % 2.0 % (0-4.5) D 05/10/19 06:15 Basophils % 0.4 % (0-2.0) 05/10/19 06:15 Nucleated RBC % 0 % (0-0) 05/10/19 06:15 Assessment/Plan dc pt home today,
--- NOTE | 2019-05-12 09:00 | DS ---
Physical Exam-CAFETERIA WORKER Vital Signs: Vital Signs Temperature 98.3 F 05/11/19 22:00 Pulse Rate 80 05/11/19 22:00 Respiratory Rate 20 05/11/19 22:00 Blood Pressure 118/69 05/11/19 22:00 O2 Sat by Pulse Oximetry (%) 100 05/09/19 16:00 Constitutional: Yes: Well Nourished, No Distress, Calm Eyes: Yes: WNL, Conjunctiva Clear, EOM Intact HENT: Yes: WNL, Atraumatic, Normocephalic Neck: Yes: WNL, Supple, Trachea Midline Cardiovascular: Yes: WNL, Regular Rate and Rhythm Respiratory: Yes: WNL, Regular, CTA Bilaterally Gastrointestinal: Yes: WNL, Normal Bowel Sounds, Soft ...Rectal Exam: Yes: WNL Renal/: Yes: WNL Pelvis: Yes: WNL External Genitalia: Yes: Normal Internal Exam Deferred: Yes Vaginal Exam: Yes: Normal Cervix: Yes: Normal Uterus: Yes: Normal Adnexa: Normal: Bilateral ....Post : Yes: Uterus firm, Uterus non-tender Breast(s): Yes: WNL Musculoskeletal: Yes: WNL Extremities: Yes: WNL Edema: Yes Edema: LUE: 1+, RUE: 1+, LLE: 1+, RLE: 1+ Integumentary: Yes: WNL Wound/Incision: Yes: Clean/Dry, Well Approximated Neurological: Yes: WNL, Alert, Oriented ...Motor Strength: WNL Psychiatric: Yes: WNL, Alert, Oriented Labs: CBC, BMP 05/10/19 06:15 Delivery - Delivery Section: Repeat, Low Flap Transverse Type of Anesthesia: Spinal Episiotomy/Laceration: None EBL (cc): 600 Delivery, Single - Stages of Labor Date of Delivery: 05/09/19 Time of Delivery: 13:38 Time Placenta Delivered: 13:39 - Condition of Harbor Engineer/Client Experience Manager Present: Yes Name: Manuela Pichardo Gender: Male Weight: 3.487 kg Position: Left, OA Total Hours ROM (Hrs/Mins): 2mins - 1 Minute Total Score: 9 5 Minutes Total Score: 9 - [place] Feeding Plan Initial Plan: Elected not to breastfeed exclusively throughout hospitalization Discharge Summary Problems reviewed: Yes Reason For Visit: Procedures: Principal: repeat c s Other Procedures: none Hospital Course: uneventful Health Concerns: none Plan of Treatment: oob as much as possible Goals: return to work in 6 weeks Condition: Good - Instructions Diet, Activity, Other Instructions: Physical activity Resume your normal everyday activity as tolerated no heavy lifting or exercise until seen by your surgeon. You may walk unlimited renetta of and climb stairs. You may resume driving the car when you feel safe and comfortable behind the wheel. No sexual activity as instructed. Wound care If you have a bandage, leave it on, and keep dry for 48-72 hours. After that time discard the outer bandage. If they are tapes on the skin under the out of bandage leave them in place. They will peel off in the next 7 to 10 days. Do Not Peel them off. You may shower the day after surgery. If there are tapes present on the skin, you may shower over them. Diet There are no dietary restrictions. Eat healthy, high-fiber foods. Drink 6 to 8 glasses of liquid each day. This will assist in keeping your bowels are regular. Pain management You may take Tylenol or acetaminophen or Ibuprofen (for example, Motrin, Advil etc.) from my pain prescription medication is ordered should be taken as pre scribed for moderate to severe pain. Call MD for any of the following: call dr tiffany lam for 2 weeks appointment Severe pain not relieved by medication Fever of 101 or higher Excessive bleeding or drainage on dressing Inability to urinate Disposition: HOME - Home Medications Comprehensive Discharge Medication List: Ambulatory Orders Pnv No.95/Ferrous Fum/Folic AC [ Formula] 1 each PO DAILY 05/09/19
[2019-05-12] MEDS: ENOXAPARIN NA (PORCINE) 40 MG/0.4 ML DISP.SYRIN SQ SCH (10:09)
[2019-05-12 10:32] VITALS: BP 119/68; PULSE 84; TEMP 97.7
== END 2019-05-12 12:30 | disposition home or self-care (01) | DRG 788 ==
LOC: JLDR 10:48 → J3W 16:34
PROVIDERS: ADMIT Obstetrics & Gynecology; ATTEND Obstetrics & Gynecology
PROC: 10D00Z1 Extraction of Products of Conception, Low, Open Approach (ICD-10-PCS; principal; 2019-05-09)
DX: O34.219 Maternal care for unspecified type scar from previous cesarean delivery (principal); Z3A.39 39 weeks gestation of pregnancy; Z37.0 Single live birth
CPT/HCPCS: 36415; 85025

== ENCOUNTER 2021-05-23 17:34 | Emergency (ER) | payer OTHER ==
[2021-05-23 17:52] VITALS: TEMP 98; BMI 30.1
[2021-05-23] MEDS ORDERED: ACETAMINOPHEN 1000 MG/100 ML BAG IVPB ONE (19:22)
[2021-05-23] MEDS ORDERED: SODIUM CHLORIDE 1,000 ML IV STA (19:22)
[2021-05-23] MEDS ORDERED: ACETAMINOPHEN INJECTION 100 ML IVPB ONE (19:42)
[2021-05-23 19:50] LABS: BASO % 0.6 % (0-2.0); EOS % 1.9 % (0-4.5); LYMPH % 30.6 % (8-40); MCH 25.6 pg (25.7-33.7); MCHC 32.5 g/dl (32.0-36.0); MEAN CELL VOLUME 78.9 fl (80-96); MEAN PLT VOLUME 8.9 fl (7.5-11.1); NEUT % 60.9 % (42.8-82.8); PLATELET COUNT 281 10^3/uL (134-434); RBC 4.69 M/mm3 (3.60-5.2); RDW 14.1 % (11.6-15.6); WHITE BLOOD COUNT 10.6 K/mm3 (4.0-10.0)
[2021-05-23 20:11] LABS: ALBUMIN 3.6 g/dl (3.4-5.0); BLOOD UREA NITROGEN 9.5 mg/dL (7-18)
[2021-05-23 20:14] LABS: CREATININE 0.7 mg/dL (0.55-1.3)
[2021-05-23 20:16] LABS: BILIRUBIN,TOTAL 0.4 mg/dL (0.2-1); TOT PROT 6.9 g/dl (6.4-8.2)
[2021-05-23 21:17] LABS: URINE APPEARANCE CLEAR; URINE BILIRUBIN NEGATIVE (NEGATIVE); URINE COLOR YELLOW; URINE GLUCOSE (UA) NEGATIVE (NEGATIVE); URINE KETONE NEGATIVE (NEGATIVE); URINE LEUK ESTERASE NEGATIVE (NEGATIVE); URINE NITRITE NEGATIVE (NEGATIVE); URINE PROTEIN NEGATIVE (NEGATIVE); URINE UROBILINOGEN 0.2 mg/dL (0.2-1.0)
[2021-05-23 21:23] LABS: HCG,QUALITATIVE URINE Negative
[2021-05-23 22:19] VITALS: BP 112/71; PULSE 77
== END 2021-05-24 00:13 | disposition home or self-care (01) ==
LOC: JER 17:34
PROC: 3E033GC Introduction of Other Therapeutic Substance into Peripheral Vein, Percutaneous Approach (ICD-10-PCS; principal; 2021-05-23)
DX: N83.201 Unspecified ovarian cyst, right side (principal)
CPT/HCPCS: 36415; 74176-TC; 76775-TC; 80053; 81003; 84703; 85025; 87086; 99285-25

== ENCOUNTER 2024-09-08 06:57 | Day surgery (SDC) | payer OTHER ==
[2024-08-28 12:39] VITALS: BMI 26.2
[2024-09-08] MEDS ORDERED: BUPIVACAINE HCL/PF 0.25% (2.5MG/ML) 10 ML VIAL ONE (08:00)
[2024-09-08] MEDS ORDERED: MIDAZOLAM HCL 2 MG/2 ML SINGLE DOSE VIAL ONE (10:18)
[2024-09-08] MEDS ORDERED: LIDOCAINE HCL/PF 2% SDV 5ML VIAL ONE (10:19)
[2024-09-08] MEDS ORDERED: PROPOFOL 20 ML ONE ×2 (10:20→10:55)
[2024-09-08] MEDS ORDERED: ROCURONIUM BROMIDE 50 MG/5 ML SYRINGE ONE (10:21)
[2024-09-08] MEDS ORDERED: ONDANSETRON 4 MG/2 ML VIAL IVPUSH PRN (10:29)
[2024-09-08] MEDS ORDERED: DEXAMETHASONE SOD PHOSPHATE 4 MG/1 ML VIAL ONE ×2 (10:42)
[2024-09-08] MEDS ORDERED: SUGAMMADEX SODIUM 200 MG/2 ML VIAL ONE (11:10)
[2024-09-08] MEDS: BUPIVACAINE HCL/PF 0.25% (2.5MG/ML) 10 ML VIAL IJ ONE ×2 (11:10)
[2024-09-08] MEDS ORDERED: KETOROLAC TROMETHAMINE 30 MG/1 ML VIAL ONE (11:10)
[2024-09-08] MEDS ORDERED: ONDANSETRON 4 MG/2 ML VIAL ONE (11:10)
[2024-09-08] MEDS: ACETAMINOPHEN INJECTION 100 ML ONE (12:07)
[2024-09-08] MEDS: ACETAMINOPHEN 1000 MG/100 ML BAG IVPB ONE (12:07)
[2024-09-08] MEDS: LACTATED RINGERS SOLUTION 1,000 ML IV SCH (12:52)
[2024-09-08 13:35] VITALS: RESP 20
[2024-09-08 15:42] VITALS: BP 92/61; PULSE 70; TEMP 97.8
== END 2024-09-08 15:48 | disposition home or self-care (01) ==
LOC: JASU-SURG 06:57
PROVIDERS: ATTEND Surgery
PROC: 0WBF4ZZ Excision of Abdominal Wall, Percutaneous Endoscopic Approach (ICD-10-PCS; 2024-09-08)
PROC: 0WQF4ZZ Repair Abdominal Wall, Percutaneous Endoscopic Approach (ICD-10-PCS; principal; 2024-09-08 10:30)
DX: Q64.4 Malformation of urachus (principal); K42.9 Umbilical hernia without obstruction or gangrene
CPT/HCPCS: 36415; 82962; 84703; 86850; 86900; 86901; 88304-TC; 94760